=== PATIENT | male | born 1940 | race Caucasian/White ===

== ENCOUNTER 2016-09-28 19:27 | Emergency (ER) | payer MEDICARE, OTHER ==
[2016-09-28 20:13] LABS: BASOPHIL 0.3 % (0-2); EOSINOPHIL 0.9 % (0-7); HCT 40.3 % (42.0-52.0); HGB 13.8 g/dl (13.2-18.0); LYMPHOCYTE 18.5 % (15-48); MCHC 34.2 g/dL (32.0-36.0); MCV 96.4 fL (78.0-100.0); MONOCYTE 7.8 % (0-12); MPV 9.1 fL (6.0-9.5); NEUTROPHIL 72.5 % (41-80); PLT 219 K/uL (150-400); RBC 4.18 M/uL (4.70-6.00); RDW 13.8 % (11.5-14.0); WBC 7.7 K/uL (4.0-10.5)
[2016-09-28 20:29] LABS: ALBUMIN 4.1 g/dL (3.4-4.8); BILIRUBIN - TOTAL 0.4 mg/dL (0.1-1.0); CREATININE 1.3 mg/dL (0.7-1.2); GLOBULIN (CALCULATION) 3.1 g/dL (2.2-4.2); POTASSIUM 3.5 mmol/L (3.5-5.1); TOTAL PROTEIN 7.2 g/dL (6.4-8.3)
== END 2016-09-28 22:00 | disposition home or self-care (01) ==
LOC: FER 19:27
PROVIDERS: Emergency Medicine Emergency Medical Services
DX: J98.4 Other disorders of lung (principal); R11.2 Nausea with vomiting, unspecified; E86.9 Volume depletion, unspecified; I10 Essential (primary) hypertension; E11.9 Type 2 diabetes mellitus without complications; F17.210 Nicotine dependence, cigarettes, uncomplicated; Z90.49 Acquired absence of other specified parts of digestive tract; Z90.89 Acquired absence of other organs
CPT/HCPCS: 36415; 80053; 82150; 83605; 83690; 85025; 93005; J2405

== ENCOUNTER 2020-08-31 11:36 | Inpatient (IN) | payer MEDICARE ==
[2020-08-31 12:52] LABS: BASOPHIL 0.2 % (0-2); EOSINOPHIL 0 % (0-7); HGB 13.6 g/dl (13.2-18.0); LYMPHOCYTE 3.8 % (15-48); MCH 32.8 pg (25.0-31.0); MCHC 33.2 g/dL (32.0-36.0); MCV 98.8 fL (78.0-100.0); MONOCYTE 4.8 % (0-12); MPV 9.3 fL (6.0-9.5); NEUTROPHIL 90.4 % (41-80); NRBC 0; PLT 190 K/uL (150-400); RBC 4.15 M/uL (4.70-6.00); RDW 14.4 % (11.5-14.0); WBC 17.7 K/uL (4.0-10.5)
[2020-08-31 13:10] LABS: ALBUMIN 3.2 g/dL (3.4-5.0); BILIRUBIN - TOTAL 1.1 mg/dL (0.2-1.0); CREATININE 1.05 mg/dL (0.67-1.17); GLOBULIN (CALCULATION) 4.6 g/dL; POTASSIUM 3.6 mmol/L (3.5-5.1); TOTAL PROTEIN 7.8 g/dL (6.4-8.2)
[2020-08-31 13:26] LABS: BILIRUBIN NEGATIVE (NEGATIVE); BLOOD TRACE-INTACT Ery/uL (NEGATIVE); CLARITY CLEAR (CLEAR); COLOR YELLOW (YELLOW); GLUCOSE (U) NORMAL (NORMAL); LEUKOCYTES NEGATIVE Leu/uL (NEGATIVE); NITRITE NEGATIVE (NEGATIVE); PROTEIN 2+ mg/dL (NEGATIVE)
[2020-08-31 13:33] LABS: SQUAMOUS EPITHELIAL CELLS RARE
[2020-08-31 14:14] LABS: LACTIC ACID 2.8 mmol/L (0.4-1.9)
[2020-08-31 16:46] LABS: CORONAVIRUS 2019 SARS-COV-2 NEGATIVE (NEGATIVE); INFLUENZA A NAA NEGATIVE (NEGATIVE)
[2020-08-31] MEDS ORDERED: PROZAC20 MG PO (17:15)
[2020-08-31] MEDS ORDERED: LIPITOR20 MG PO (17:15)
[2020-08-31] MEDS ORDERED: ACTOS15 M1 PO (17:15)
[2020-08-31] MEDS ORDERED: VITAMIN B-121000 MC1 PO (17:16)
[2020-08-31] MEDS ORDERED: ASPIRIN EC81 MG PO (17:16)
[2020-09-01 06:35] LABS: BASOPHIL 0.3 % (0-2); EOSINOPHIL 0.2 % (0-7); HGB 12.5 g/dl (13.2-18.0); LYMPHOCYTE 7.2 % (15-48); MCH 32.6 pg (25.0-31.0); MCHC 32.9 g/dL (32.0-36.0); MONOCYTE 4.8 % (0-12); MPV 9.6 fL (6.0-9.5); NEUTROPHIL 85.5 % (41-80); NRBC 0; PLT 144 K/uL (150-400); RBC 3.84 M/uL (4.70-6.00); RDW 14.3 % (11.5-14.0); WBC 14.7 K/uL (4.0-10.5)
[2020-09-01 06:54] LABS: ALBUMIN 2.5 g/dL (3.4-5.0); BUN/CREAT RATIO (CALC) 22.9 RATIO; CREATININE 1.05 mg/dL (0.67-1.17); GLOBULIN (CALCULATION) 3.8 g/dL; POTASSIUM 3.4 mmol/L (3.5-5.1); TOTAL PROTEIN 6.3 g/dL (6.4-8.2)
[2020-09-02 06:20] LABS: BASOPHIL 0.2 % (0-2); EOSINOPHIL 3.8 % (0-7); HCT 37.4 % (42.0-52.0); HGB 12.1 g/dl (13.2-18.0); LYMPHOCYTE 7.7 % (15-48); MCHC 32.4 g/dL (32.0-36.0); MCV 98.9 fL (78.0-100.0); MONOCYTE 3.5 % (0-12); MPV 9.8 fL (6.0-9.5); NEUTROPHIL 84.1 % (41-80); NRBC 0; PLT 154 K/uL (150-400); RBC 3.78 M/uL (4.70-6.00); RDW 14.2 % (11.5-14.0); WBC 9.9 K/uL (4.0-10.5)
[2020-09-02 06:37] LABS: BUN/CREAT RATIO (CALC) 23.7 RATIO; CREATININE 1.14 mg/dL (0.67-1.17); MAGNESIUM 1.8 mg/dL (1.8-2.4); POTASSIUM 3.5 mmol/L (3.5-5.1)
[2020-09-03 05:40] LABS: BASOPHIL 0.5 % (0-2); HCT 34.6 % (42.0-52.0); HGB 11.4 g/dl (13.2-18.0); LYMPHOCYTE 14.7 % (15-48); MCH 32.8 pg (25.0-31.0); MCHC 32.9 g/dL (32.0-36.0); MCV 99.4 fL (78.0-100.0); MONOCYTE 6.3 % (0-12); MPV 9.9 fL (6.0-9.5); NEUTROPHIL 73.1 % (41-80); NRBC 0; PLT 145 K/uL (150-400); RBC 3.48 M/uL (4.70-6.00); RDW 14.2 % (11.5-14.0); RETICULOCYTE COUNT 1.3 % (1.0-2.0); WBC 7.6 K/uL (4.0-10.5)
[2020-09-03 05:54] LABS: IRON % SATURATION 35.9 %SAT (20-50)
[2020-09-03 06:25] LABS: BUN/CREAT RATIO (CALC) 13.8 RATIO; CREATININE 1.3 mg/dL (0.67-1.17); FOLIC ACID (SERUM) 8.7 ng/mL (8.6-58.9); MAGNESIUM 1.9 mg/dL (1.8-2.4); POTASSIUM 3.4 mmol/L (3.5-5.1)
--- NOTE | 2020-09-03 10:24 | NUR ---
09/03/20 Mr. Barrett is oriented to self, place, and family. H&P notes dementia and frequent falls. He lives alone with Visiting Nurses 4 days per week for 4 hours. Mr. Barrett has a cane, rolling walker and emergency alert system. - Therapy is recommending 24 hour care. This social sciences chair consulted with patient's daughters, America Aiken, [phone], and VERONICA Trinh, (via speaker phone). The family plans to increase hours of Visiting [place] and the 3 daughters in town will work out a schedule to increase time they will be staying in the home. - Family chose [facility]. They were educated to the affliation. - A referral was made to [facility] via [facility].
[2020-09-03] MEDS ORDERED: DUONEB 2.5-0.5M1 AMP INH (12:02)
[2020-09-03] MEDS ORDERED: AUGMENTIN 875-1 EACH PO (12:02)
[2020-09-03] MEDS ORDERED: NEBULIZER UNIT NEB (12:02)
--- NOTE | 2020-09-03 13:01 | NUR ---
DISCHARGE ORDERS RECEIVED. IV REMOVED. PT TO GO HOME PER DAUGHTER. TO BE TAKEN OUT BY WHEELCHAIR. ALL QUESTIONS ANSWERED.
== END 2020-09-03 13:25 | disposition home health service (06) | DRG 871 ==
LOC: FER 11:36 → FTCU 15:52
PROVIDERS: Emergency Medicine; Nurse Practitioner; ADMIT Internal Medicine
DX: A41.9 Sepsis, unspecified organism (principal); J18.9 Pneumonia, unspecified organism; G93.41 Metabolic encephalopathy; E87.2 Acidosis; R53.1 Weakness; F03.90 Unspecified dementia, unspecified severity, without behavioral disturbance, psychotic disturbance, mood disturbance, and anxiety; Z79.899 Other long term (current) drug therapy; Z79.82 Long term (current) use of aspirin; E11.9 Type 2 diabetes mellitus without complications; F17.210 Nicotine dependence, cigarettes, uncomplicated; Z20.822 Contact with and (suspected) exposure to COVID-19; S01.01XA Laceration without foreign body of scalp, initial encounter; W19.XXXA Unspecified fall, initial encounter; Y92.009 Unspecified place in unspecified non-institutional (private) residence as the place of occurrence of the external cause; R65.20 Severe sepsis without septic shock; E78.5 Hyperlipidemia, unspecified; I10 Essential (primary) hypertension; H91.90 Unspecified hearing loss, unspecified ear; Z91.81 History of falling
CPT/HCPCS: 36415; 70450; 71045; 80048; 80053; 81001; 82607; 82746; 82962; 83540; 83550; 83605; 83735; 85025; 87040; 93005; 94640; 94760; 97162; 97166; 97530; 97530-GP; 97535; J1650; J2543; J7040; U0002

== ENCOUNTER 2022-01-09 18:46 | Inpatient (IN) | payer MEDICARE ==
[~2022-01-09] VITALS: Ht 168 cm; Wt 68.0 kg
[~2022-01-09 18:46] MED LIST: ACTOS15 M1 PO; ASPIRIN EC81 MG PO; AUGMENTIN 875-1 EACH PO; DUONEB 2.5-0.5M1 AMP INH; LIPITOR20 MG PO; NEBULIZER UNIT NEB; PROZAC20 MG PO; VITAMIN B-121000 MC1 PO
[2022-01-09 19:37] LABS: BASOPHIL 0.8 % (0-2); EOSINOPHIL 2.7 % (0-7); HCT 38.4 % (42.0-52.0); HGB 12.6 g/dl (13.2-18.0); LYMPHOCYTE 13.5 % (15-48); MCH 32.1 pg (25.0-31.0); MCHC 32.8 g/dL (32.0-36.0); MONOCYTE 6.6 % (0-12); MPV 9.2 fL (6.0-9.5); NEUTROPHIL 75.9 % (41-80); NRBC 0; PLT 196 K/uL (150-400); RBC 3.92 M/uL (4.70-6.00); RDW 14.2 % (11.5-14.0); WBC 10.3 K/uL (4.0-10.5)
[2022-01-09 19:53] LABS: INR 1.15 (0.9-1.2); PROTHROMBIN TIME 14.4 SECONDS (11.9-13.9); PTT 32.2 SECONDS (24.9-34.6)
[2022-01-09 20:05] LABS: ALKALINE PHOSHATASE 81 U/L (46-116); ALT 14 U/L (16-63); AST 17 U/L (15-37); BILIRUBIN - TOTAL 0.5 mg/dL (0.2-1.0); BUN 16 mg/dL (7-18); BUN/CREAT RATIO (CALC) 13.3 RATIO; CHLORIDE 107 mmol/L (98-107); CO2 (BICARBONATE) 28 mmol/L (21-32); GLOBULIN (CALCULATION) 3.6 g/dL; GLUCOSE 84 mg/dL (74-106); POTASSIUM 4.1 mmol/L (3.5-5.1); TOTAL PROTEIN 6.6 g/dL (6.4-8.2)
[2022-01-09 20:11] LABS: CORONAVIRUS 2019 SARS-COV-2 NEGATIVE (NEGATIVE); INFLUENZA A NAA NEGATIVE (NEGATIVE)
[2022-01-10 01:14] LABS: BILIRUBIN NEGATIVE (NEGATIVE); BLOOD 2+ Ery/uL (NEGATIVE); CLARITY CLEAR (CLEAR); COLOR YELLOW (YELLOW); GLUCOSE (U) NORMAL (NORMAL); LEUKOCYTES NEGATIVE Leu/uL (NEGATIVE); NITRITE NEGATIVE (NEGATIVE); PROTEIN 1+ mg/dL (NEGATIVE); UROBILINOGEN 0.2 mg/dL (0.2-1.0)
[2022-01-10 01:21] LABS: BACTERIA TRACE
[2022-01-10] MEDS ORDERED: DUONEB 2.5-0.5M1 AMP NEB (02:57)
[2022-01-10 05:52] LABS: HCT 36.8 % (42.0-52.0); MCHC 32.6 g/dL (32.0-36.0); MCV 98.1 fL (78.0-100.0); MPV 9.1 fL (6.0-9.5); RBC 3.75 M/uL (4.70-6.00); RDW 14.4 % (11.5-14.0); RETICULOCYTE COUNT 1.6 % (1.0-2.0); WBC 9.7 K/uL (4.0-10.5)
[2022-01-10 06:21] LABS: IRON % SATURATION 11.9 %SAT (20-50)
[2022-01-10 07:14] LABS: CREATININE 1.27 mg/dL (0.67-1.17); POTASSIUM 4.3 mmol/L (3.5-5.1)
[2022-01-11 06:02] LABS: HGB 8.8 g/dl (13.2-18.0); MCH 32.1 pg (25.0-31.0); MCHC 32.6 g/dL (32.0-36.0); MCV 98.5 fL (78.0-100.0); MPV 9.5 fL (6.0-9.5); RBC 2.74 M/uL (4.70-6.00); RDW 14.4 % (11.5-14.0); WBC 9.6 K/uL (4.0-10.5)
[2022-01-12 06:53] LABS: BASOPHIL 0.2 % (0-2); EOSINOPHIL 4.7 % (0-7); HCT 24.4 % (42.0-52.0); HGB 7.9 g/dl (13.2-18.0); MCH 31.5 pg (25.0-31.0); MCHC 32.4 g/dL (32.0-36.0); MCV 97.2 fL (78.0-100.0); MONOCYTE 7.2 % (0-12); MPV 10.3 fL (6.0-9.5); NEUTROPHIL 73.3 % (41-80); NRBC 0; PLT 124 K/uL (150-400); RBC 2.51 M/uL (4.70-6.00); RDW 14.2 % (11.5-14.0); WBC 9.7 K/uL (4.0-10.5)
[2022-01-12 07:12] LABS: BUN/CREAT RATIO (CALC) 20.6 RATIO; CREATININE 1.36 mg/dL (0.67-1.17); POTASSIUM 3.8 mmol/L (3.5-5.1)
--- NOTE | 2022-01-13 12:19 | NUR ---
01/13/22 Mr. Barrett lives alone. He has been having falls and unable to recall to use his walker. He has caregivers 4 days a week for 4 hours. He is confused at this time. edna Trinh has requested placement. Her choices are [facility] and [place]. Ms. Gates has been requested to provide additional NHs. She has declined [facility] or [place] [facility]. Ms. Gates was provided with a Post-Acute Provider rting card. - referrals toby be made when and ELOS is determined.
--- NOTE | 2022-01-14 05:32 | NUR ---
AROUND 0330 PT STARTED PULLING ON IV, WONT KEEP O2 ON. PT PULLING OFF DRESSING TO RT HIP AND TRYING TO PULL OUT ALFRED, PT YELLING, TRYING TO CLIMB OUT OF BED, HE SCRATCHED HIS ARM THAT CAUSED A SKIN TEAR, CONTINOUSLY TRYING TO PULL OUT IV, PULLING OF BRIEF AND SCD VILMA. ROBERT FREEMAN APRN NOTIFIED WHOM ORDERED ATIVAN 1 MG IVP
[2022-01-14 08:54] LABS: BASOPHIL 0.5 % (0-2); EOSINOPHIL 5.9 % (0-7); HCT 21.3 % (42.0-52.0); HGB 6.8 g/dl (13.2-18.0); LYMPHOCYTE 15.5 % (15-48); MCH 31.9 pg (25.0-31.0); MCHC 31.9 g/dL (32.0-36.0); MONOCYTE 7.9 % (0-12); MPV 10.2 fL (6.0-9.5); NEUTROPHIL 69.6 % (41-80); NRBC 0.3; PLT 122 K/uL (150-400); RBC 2.13 M/uL (4.70-6.00); RDW 14.6 % (11.5-14.0)
[2022-01-14 09:14] LABS: BUN/CREAT RATIO (CALC) 22.6 RATIO; CREATININE 1.15 mg/dL (0.67-1.17); POTASSIUM 3.4 mmol/L (3.5-5.1)
--- NOTE | 2022-01-14 23:14 | NUR ---
PT DC'D HIS IV AT AROUND 1999 DURING HIS BLOOD TRANSFUSION. 1 IV ATTEMPTED AND MISSED. 2ND IV ATTEMPT PLACED WITH AN 18 GAUGE IN THE LEFT AC. BLOOD TRANSFUSION RESTARTED AT AROUND 2030
[2022-01-15 07:14] LABS: HCT 32.6 % (42.0-52.0); MCH 31.2 pg (25.0-31.0); MCHC 32.8 g/dL (32.0-36.0); MPV 10.5 fL (6.0-9.5); RBC 3.43 M/uL (4.70-6.00); RDW 16.5 % (11.5-14.0); WBC 8.5 K/uL (4.0-10.5)
[2022-01-15 07:15] LABS: HGB 10.7 g/dl (13.2-18.0)
[2022-01-15 07:28] LABS: BUN/CREAT RATIO (CALC) 21.6 RATIO; CREATININE 1.02 mg/dL (0.67-1.17); MAGNESIUM 1.8 mg/dL (1.8-2.4); POTASSIUM 3.3 mmol/L (3.5-5.1)
--- NOTE | 2022-01-15 14:23 | NUR ---
01/15 Mr. Barrett is expected to be ready for discharge on 01/16 or 01/17. Jessica Gates, daughter has changed her mind re: preferred facilities. Referrals have been made [place] and [facility]. Ms. Gates will be visiting -[facility] facilities today. She will update her preferene list after her visits.
[2022-01-16 09:33] LABS: HCT 32.5 % (42.0-52.0); HGB 10.7 g/dl (13.2-18.0); MCH 31.3 pg (25.0-31.0); MCHC 32.9 g/dL (32.0-36.0); MPV 10.1 fL (6.0-9.5); RBC 3.42 M/uL (4.70-6.00); RDW 16.7 % (11.5-14.0); WBC 10.6 K/uL (4.0-10.5)
[2022-01-16 09:56] LABS: POTASSIUM 3.7 mmol/L (3.5-5.1)
[2022-01-17 10:04] LABS: BASOPHIL 0.6 % (0-2); EOSINOPHIL 5.3 % (0-7); HCT 32.9 % (42.0-52.0); HGB 10.6 g/dl (13.2-18.0); LYMPHOCYTE 17.5 % (15-48); MCH 31.3 pg (25.0-31.0); MCHC 32.2 g/dL (32.0-36.0); MCV 97.1 fL (78.0-100.0); NEUTROPHIL 66.3 % (41-80); NRBC 0.2; PLT 162 K/uL (150-400); RBC 3.39 M/uL (4.70-6.00); RDW 16.8 % (11.5-14.0); WBC 12.7 K/uL (4.0-10.5)
--- NOTE | 2022-01-17 10:22 | NUR ---
01/17 Denials have been received from [place], [facility] and [facility]. [place] is reviewing. Referrals have been made to [facility], [facility], [facility], [facility], [facility], [facility] and [facility].
[2022-01-17 10:41] LABS: POTASSIUM 3.6 mmol/L (3.5-5.1)
[2022-01-17 15:35] LABS: BILIRUBIN NEGATIVE (NEGATIVE); BLOOD 1+ Ery/uL (NEGATIVE); CLARITY CLEAR (CLEAR); COLOR YELLOW (YELLOW); GLUCOSE (U) NORMAL (NORMAL); LEUKOCYTES NEGATIVE Leu/uL (NEGATIVE); NITRITE NEGATIVE (NEGATIVE); PROTEIN 1+ mg/dL (NEGATIVE); SPECIFIC GRAVITY 1.015 (1.001-1.030)
[2022-01-17 15:52] LABS: BACTERIA TRACE
[2022-01-17 15:53] LABS: SQUAMOUS EPITHELIAL CELLS RARE
[2022-01-18 15:51] LABS: BASOPHIL 0.5 % (0-2); EOSINOPHIL 5.9 % (0-7); HCT 32.8 % (42.0-52.0); HGB 10.5 g/dl (13.2-18.0); LYMPHOCYTE 18.3 % (15-48); MCH 31.4 pg (25.0-31.0); MCV 98.2 fL (78.0-100.0); MONOCYTE 7.9 % (0-12); NRBC 0; PLT 164 K/uL (150-400); RBC 3.34 M/uL (4.70-6.00); RDW 17.2 % (11.5-14.0); WBC 10.5 K/uL (4.0-10.5)
[2022-01-18 16:25] LABS: CREATININE 1.12 mg/dL (0.67-1.17); POTASSIUM 3.9 mmol/L (3.5-5.1)
[2022-01-18 16:35] LABS: MAGNESIUM 1.8 mg/dL (1.8-2.4)
[2022-01-19 06:49] LABS: BASOPHIL 0.5 % (0-2); EOSINOPHIL 6.2 % (0-7); HCT 31.9 % (42.0-52.0); LYMPHOCYTE 23.2 % (15-48); MCH 31.4 pg (25.0-31.0); MCHC 31.3 g/dL (32.0-36.0); MCV 100.3 fL (78.0-100.0); MONOCYTE 9.3 % (0-12); MPV 10.1 fL (6.0-9.5); NEUTROPHIL 59.4 % (41-80); NRBC 0; PLT 171 K/uL (150-400); RBC 3.18 M/uL (4.70-6.00); WBC 9.6 K/uL (4.0-10.5)
[2022-01-19 07:27] LABS: CREATININE 1.22 mg/dL (0.67-1.17); MAGNESIUM 1.8 mg/dL (1.8-2.4); POTASSIUM 3.6 mmol/L (3.5-5.1)
--- NOTE | 2022-01-19 15:44 | NUR ---
PATIENT RETURNED TO BED, ASSESSED AND SMALL ABRASION NOTED IN INNER BUTTOCK CHEEKS NEAR THE RIGHT SIDE, PATIENT HAD LOOSE STOOL THIS AM, ALSO HAD BEEN REPOSITIONED HOURLY IN CHAIR AND STOOD UP ONCE AND REPOSITIONED IN CHAIR. ALLEVYN SACRUM APPLIED TO PROTECT SKIN
--- NOTE | 2022-01-20 12:27 | NUR ---
01/20 [facility] has offered a bed pending insurance authorization. Updated therapy notes are required within 48 hours.
[2022-01-22 06:09] LABS: BASOPHIL 0.6 % (0-2); EOSINOPHIL 2.3 % (0-7); HCT 34.1 % (42.0-52.0); HGB 10.8 g/dl (13.2-18.0); LYMPHOCYTE 13.9 % (15-48); MCH 31.1 pg (25.0-31.0); MCHC 31.7 g/dL (32.0-36.0); MCV 98.3 fL (78.0-100.0); MONOCYTE 8.1 % (0-12); MPV 10.4 fL (6.0-9.5); NEUTROPHIL 74.3 % (41-80); NRBC 0; PLT 245 K/uL (150-400); RBC 3.47 M/uL (4.70-6.00); RDW 16.9 % (11.5-14.0); WBC 12.9 K/uL (4.0-10.5)
[2022-01-22 06:30] LABS: BUN/CREAT RATIO (CALC) 21.4 RATIO; CREATININE 1.12 mg/dL (0.67-1.17); POTASSIUM 3.3 mmol/L (3.5-5.1)
--- NOTE | 2022-01-22 07:21 | NUR ---
PATIENT SHARON MAY, SAYS HE IS IN THE ROOM AND HE WANTS TO GET OOB AND TALK TO HIM, KICKING AND SLAPPING AT STAFF. UNABLE TO REDIRECT, CONTINUES TO THROW HIS LEGS OUT OF THE BED.
--- NOTE | 2022-01-22 07:47 | NUR ---
PATIENT HALLUCINATING, SEEING PEOPLE NOT THERE, THINKS HE'S IN A CAR AND NEEDS TO PUT IT UP ON CINDER BLOCKS TO FIX IT. UNABLE TO REORIENT. KICKING AT STAFF WHEN ATTEMPTING TO KEEP HIM FROM FALLING OUT OF BED
--- NOTE | 2022-01-22 10:14 | NUR ---
01/23/22 Jose Alfredo Leggett, [facility] liaison, reports to have received insurance approval for admission today. Patient meets criteria for EMS per Dr. Babcock. Please fax a signed H&P and MOI. - VERONICA Trinh / carli was informed.
[2022-01-22] MEDS ORDERED: COLACE100 MG PO (10:36)
[2022-01-22] MEDS ORDERED: PANTOPRAZOLE SO40 MG PO (10:36)
[2022-01-22] MEDS ORDERED: HABITROL7 MG TD (10:36)
[2022-01-22] MEDS ORDERED: ZYPREXA 5MG TABL5 MG PO (10:36)
[2022-01-22] MEDS ORDERED: ACETAMINOPHEN325 MG PO (10:36)
[2022-01-22] MEDS ORDERED: XARELTO10 MG PO (10:36)
== END 2022-01-22 14:22 | DRG 480 ==
LOC: FER 18:46 → FMS 01-10 00:17
PROVIDERS: Emergency Medicine; Internal Medicine; Nurse Practitioner Acute Care; Orthopaedic Surgery; ADMIT Internal Medicine
PROC: B24BZZZ Ultrasonography of Heart with Aorta (ICD-10-PCS; 2022-01-10)
PROC: 0QS606Z Reposition Right Upper Femur with Intramedullary Internal Fixation Device, Open Approach (ICD-10-PCS; principal; 2022-01-10 13:30)
PROC: 30233N1 Transfusion of Nonautologous Red Blood Cells into Peripheral Vein, Percutaneous Approach (ICD-10-PCS; 2022-01-14)
DX: S72.141A Displaced intertrochanteric fracture of right femur, initial encounter for closed fracture (principal); G93.41 Metabolic encephalopathy; J69.0 Pneumonitis due to inhalation of food and vomit; J96.21 Acute and chronic respiratory failure with hypoxia; D62 Acute posthemorrhagic anemia; N17.9 Acute kidney failure, unspecified; F05 Delirium due to known physiological condition; F03.91 Unspecified dementia, unspecified severity, with behavioral disturbance; R44.3 Hallucinations, unspecified; W19.XXXA Unspecified fall, initial encounter; J43.9 Emphysema, unspecified; J84.10 Pulmonary fibrosis, unspecified; F17.210 Nicotine dependence, cigarettes, uncomplicated; F03.90 Unspecified dementia, unspecified severity, without behavioral disturbance, psychotic disturbance, mood disturbance, and anxiety; F41.9 Anxiety disorder, unspecified; F32.A Depression, unspecified; E11.22 Type 2 diabetes mellitus with diabetic chronic kidney disease; N18.2 Chronic kidney disease, stage 2 (mild); R82.71 Bacteriuria; D50.9 Iron deficiency anemia, unspecified; K63.89 Other specified diseases of intestine; R91.8 Other nonspecific abnormal finding of lung field; Z99.81 Dependence on supplemental oxygen; Z86.73 Personal history of transient ischemic attack (TIA), and cerebral infarction without residual deficits; Z90.49 Acquired absence of other specified parts of digestive tract; Z79.84 Long term (current) use of oral hypoglycemic drugs; Z79.82 Long term (current) use of aspirin; Z79.899 Other long term (current) drug therapy; Z98.890 Other specified postprocedural states
CPT/HCPCS: 36415; 36430; 36600; 70450; 71045; 71250; 72125; 73070; 73501; 73502; 76000; 80048; 80053; 81001; 82550; 82607; 82803; 83036; 83540; 83550; 83735; 83880; 84443; 84484; 85025; 85610; 85730; 86850; 86900; 86901; 86922; 87088; 92526; 93005; 94010; 94760; 94762; 96374; 96375; 97110; 97162; 97167; 97530; 97530-GP; 97535; C1713; G0480; J0697; J1170; J1650; J1885; J2060; J2270; J2543; J2704; J2916; J3010; J7050; J7120; P9016; U0002